=== PATIENT | female | born 1940 | race Caucasian/White ===

== ENCOUNTER 2016-11-16 11:29 | Day surgery (SDC) | payer MEDICARE, OTHER ==
--- NOTE | ~2016-11-16 | EGD ---
EGD REPORT [facility] [address] [place]. [address] NAME: SONYA MARTINO : [birth year] STATUS : REG [place] PAT#: [id number] AGE: 76 ADM/REG DATE : 11/16/16 MR#: [id number] REPORT SERV DATE: 11/16/16 DICTATED BY: MARY ROGERS DATE: 11/16/16 REPORT STATUS : Draft TRANSCRIBED BY: [facility] DATE: 11/16/16 Endoscopy Center Patient Name: Sonya Martino Date of : 1940 Attending MD: MARY ROGERS MD Procedure Date No Time: 11/16/2016 Procedure: Colonoscopy Indications: High risk colon cancer surveillance: Personal history of colonic polyps, Last colonoscopy: 2010 Referring MD: Rod Gonzalez Medicines: See the Anesthesia note for documentation of the administered medications Complications: No immediate complications. Procedure: Pre-Anesthesia Assessment: - ASA Grade Assessment: III - A patient with severe systemic disease. After I obtained informed consent, the scope was passed under direct vision. Throughout the procedure, the patient's blood pressure, pulse, and oxygen saturations were monitored continuously. The PCF [id number] [id number] was introduced through the anus and advanced to the cecum, identified by appendiceal orifice and ileocecal valve. The colonoscopy was performed without difficulty. The patient tolerated the procedure well. The quality of the bowel preparation was adequate. Findings: The perianal and digital rectal examinations were normal. Melanosis was found in the entire colon. Diverticula were found in the sigmoid colon and in the ascending colon. Internal hemorrhoids were found during retroflexion and were small. A sessile polyp was found in the ascending colon. The polyp was 10 mm in size. The polyp was removed with a hot snare. Resection and retrieval were complete. Three sessile polyps were found in the ascending colon. The polyps were small in size. These polyps were removed with a cold biopsy forceps. Resection and retrieval were complete. Three sessile polyps were found in the transverse colon. The polyps were small in size. These polyps were removed with a cold biopsy forceps. Resection and retrieval were complete. Two sessile polyps were found in the descending colon. The polyps were 10 mm in size. These polyps were removed with a hot snare. Resection and retrieval were complete. A sessile polyp was found in the descending colon. The polyp was small in size. The polyp was removed with a cold biopsy forceps. Resection and EGD REPORT [address] [address] NAME: SONYA MARTINO : [birth year] STATUS : REG [place] PAT#: [id number] AGE: 76 ADM/REG DATE : 11/16/16 MR#: [id number] REPORT SERV DATE: 11/16/16 DICTATED BY: MARY ROGERS DATE: 11/16/16 REPORT STATUS : Draft TRANSCRIBED BY: [employer] DATE: 11/16/16 retrieval were complete. Impression: - Diverticulosis in the sigmoid colon and in the ascending colon. - Internal hemorrhoids. - One 10 mm polyp in the ascending colon. Resected and retrieved. - Three small polyps in the ascending colon. Resected and retrieved. - Three small polyps in the transverse colon. Resected and retrieved. - Two 10 mm polyps in the descending colon. Resected and retrieved. - One small polyp in the descending colon. Resected and retrieved. Recommendation: - Patient has a contact number available for emergencies. The signs and symptoms of potential delayed complications were discussed with the patient. Return to normal activities tomorrow. Written discharge instructions were provided to the patient. - Regular diet. - Continue present medications. - Repeat colonoscopy in 1 year for surveillance. - Return to my office in 6 weeks. - FOR YOUR BIOPSY RESULTS: Please go to [email or web address] and register to receive your results via the portal. Your biopsy results will be posted there in about 7 to 10 days. IF you do not see result in 10 days, call office. Procedure Code(s): --- Professional --- 50478, Colonoscopy, flexible, proximal to splenic flexure; with removal of tumor(s), polyp(s), or other lesion(s) by snare technique 80890, 59, Colonoscopy, flexible, proximal to splenic flexure; with biopsy, single or multiple Diagnosis Code(s): --- Professional --- K64.8, Other hemorrhoids K57.30, Diverticulosis of large intestine without perforation or abscess without bleeding D12.4, Benign neoplasm of descending colon D12.3, Benign neoplasm of transverse colon D12.2, Benign neoplasm of ascending colon Z86.010, Personal history of colonic polyps EGD REPORT [facility] [address] [place] [address] [address] NAME: SONYA MARTINO : [birth year] STATUS : REG [place] PAT#: [id number] AGE: 76 ADM/REG DATE : 11/16/16 MR#: [id number] REPORT SERV DATE: 11/16/16 DICTATED BY: MARY ROGERS DATE: 11/16/16 REPORT STATUS : Draft TRANSCRIBED BY: [employer] DATE: 11/16/16 CPT copyright 2013 [employer]. All rights reserved. The codes documented in this report are preliminary and upon proteomics scientist review may be revised to meet current compliance requirements. Mary Rogers MD MARY ROGERS MD 11/16/2016 2:08 PM This report has been signed electronically. Number of Addenda: 0 Note Initiated On: 11/16/2016 1:35 PM Scope Withdrawal Time 0 hours 18 minutes 29 seconds [address] [place] [address] [id number]
--- NOTE | ~2016-11-16 | EGD ---
EGD REPORT [facility] [address] [place] [address] [address] NAME: SONYA MARTINO : [birth year] STATUS : REG [facility] PAT#: [id number] AGE: 76 ADM/REG DATE : 11/16/16 MR#: [id number] REPORT SERV DATE: 11/16/16 DICTATED BY: MARY ROGERS DATE: 11/16/16 REPORT STATUS : Draft [facility] DATE: 11/16/16 Endoscopy Center Patient Name: Sonya Martino Date of : 1940 Attending MD: MARY ROGERS MD Procedure Date No Time: 11/16/2016 Procedure: Upper GI endoscopy Indications: Gastro-esophageal reflux disease, Abdominal bloating Referring MD: Rod Gonzalez Medicines: See the Anesthesia note for documentation of the administered medications Complications: No immediate complications. Procedure: Pre-Anesthesia Assessment: - ASA Grade Assessment: III - A patient with severe systemic disease. After obtaining informed consent, the endoscope was passed under direct vision. Throughout the procedure, the patient's blood pressure, pulse, and oxygen saturations were monitored continuously. The GIF H190 [id number] was introduced through the mouth, and advanced to the third part of duodenum. The upper GI endoscopy was accomplished without difficulty. The patient tolerated the procedure well. Findings: The 2nd part of the duodenum was normal. Biopsies were taken with a cold forceps for histology. Erythematous mucosa was found in the duodenal bulb. The gastric antrum was normal. Biopsies were taken with a cold forceps for histology. Numerous small sessile polyps were found in the gastric body. Biopsies were taken with a cold forceps for histology. A 4 cm hiatus hernia was present. Impression: - Normal 2nd part of the duodenum. Biopsied. - Erythematous duodenopathy. - Normal antrum. Biopsied. - Numerous gastric polyps. Biopsied. - Hiatus hernia. Recommendation: - Patient has a contact number available for emergencies. The signs and symptoms of potential delayed complications were discussed with the patient. Return to normal activities tomorrow. Written discharge instructions were provided to the patient. EGD REPORT [address] [address] NAME: SONYA MARTINO : [birth year] STATUS : REG [facility] PAT#: [id number] AGE: 76 ADM/REG DATE : 11/16/16 MR#: [id number] REPORT SERV DATE: 11/16/16 DICTATED BY: MARY ROGERS DATE: 11/16/16 REPORT STATUS : Draft TRANSCRIBED BY: [employer] DATE: 11/16/16 - Regular diet. - Continue present medications. - FOR YOUR BIOPSY RESULTS: Please go to [email or web address] and register to receive your results via the portal. Your biopsy results will be posted there in about 7 to 10 days. IF you do not see result in 10 days, call office. Procedure Code(s): --- Professional --- 02488, Esophagogastroduodenoscopy, flexible, transoral; with biopsy, single or multiple Diagnosis Code(s): --- Professional --- K31.89, Other diseases of stomach and duodenum K31.7, Polyp of stomach and duodenum K44.9, Diaphragmatic hernia without obstruction or gangrene K21.9, Gastro-esophageal reflux disease without esophagitis R14.0, Abdominal distension (gaseous) CPT copyright 2013 [employer]. All rights reserved. The codes documented in this report are preliminary and upon hospice art therapist review may be revised to meet current compliance requirements. Mary Rogers MD MARY ROGERS MD 11/16/2016 1:37 PM This report has been signed electronically. Number of Addenda: 0 Note Initiated On: 11/16/2016 1:27 PM Scope Withdrawal Time 0 hours 0 minutes 0 seconds [address] [place] [address] [id number]
[~2016-11-16 11:29] MED LIST: ASA5GR PO; ASAB PO; AVALIDE1 TAB PO; AVAP150 PO; BILBERRY; CELEXA40 MG PO; CIP5 PO; COQ-1010 MG OR; COQ-1010 MG PO; CRESTOR10 PO; ENDOCET1 TA3 PO; FISH-EPA1000 MG PO; FOSAMAX70 MG PO; GLUCPH PO; K-99 PO; L40 PO; MIRAPEX1 MG PO; MIRAPEX5 PO; MOBIC15 MG PO; MULTIVITAMI1 PO; Mirapex PO; NORCO1 TA1 PO; OCUVITE PO; OS500+D PO; PLAVIX PO; PRILO PO; STERAPRED DS10 MG; ULTRAM50 PO; [UNRECOGNIZED DRUG - OTHER]
== END 2016-11-16 23:59 | disposition home or self-care (01) ==
LOC: DMU 11:29
PROVIDERS: Internal Medicine Gastroenterology
PROC: 0DBM8ZZ Excision of Descending Colon, Via Natural or Artificial Opening Endoscopic (ICD-10-PCS; 2016-11-16)
PROC: 0DBL8ZZ Excision of Transverse Colon, Via Natural or Artificial Opening Endoscopic (ICD-10-PCS; 2016-11-16)
PROC: 0DB98ZX Excision of Duodenum, Via Natural or Artificial Opening Endoscopic, Diagnostic (ICD-10-PCS; principal; 2016-11-16 13:00)
PROC: 0DB68ZX Excision of Stomach, Via Natural or Artificial Opening Endoscopic, Diagnostic (ICD-10-PCS; 2016-11-16 13:00)
PROC: 0DBK8ZZ Excision of Ascending Colon, Via Natural or Artificial Opening Endoscopic (ICD-10-PCS; 2016-11-16 13:00)
DX: Z12.11 Encounter for screening for malignant neoplasm of colon (principal); K31.7 Polyp of stomach and duodenum; D12.2 Benign neoplasm of ascending colon; D12.3 Benign neoplasm of transverse colon; D12.4 Benign neoplasm of descending colon; K64.8 Other hemorrhoids; K57.30 Diverticulosis of large intestine without perforation or abscess without bleeding; Z86.010 Personal history of colon polyps; K31.89 Other diseases of stomach and duodenum; K44.9 Diaphragmatic hernia without obstruction or gangrene; K21.9 Gastro-esophageal reflux disease without esophagitis; R14.0 Abdominal distension (gaseous); I10 Essential (primary) hypertension; I65.29 Occlusion and stenosis of unspecified carotid artery; E11.9 Type 2 diabetes mellitus without complications; I73.9 Peripheral vascular disease, unspecified; Z95.5 Presence of coronary angioplasty implant and graft; Z79.899 Other long term (current) drug therapy; Z79.84 Long term (current) use of oral hypoglycemic drugs; Z79.891 Long term (current) use of opiate analgesic; Z79.82 Long term (current) use of aspirin; Z88.5 Allergy status to narcotic agent
CPT/HCPCS: 82962; 88305